=== PATIENT | female | born 1990 | race Caucasian/White ===

== ENCOUNTER 2021-07-25 09:04 | Day surgery (SDC) | payer BC ==
[~2021-07-25] VITALS: Ht 172.7 cm; Wt 60.9 kg
--- NOTE | 2021-07-25 08:12 | NUR ---
07/25/21 0811 Karlene Campbell HISTORY,CHART, MEDICATIONS AND ALLERGIES REVIEWED BEFORE START OF PROCEDURE. PATIENT CONFIRMS NPO STATUS AND AGREES WITH SCHEDULED PROCEDURE. 3-LEAD EKG REVIEWED WITH PHYSICIAN PRIOR TO START OF PROCEDURE. MONITOR INTACT WITH CONTINUOUS PULSE OXIMETRY, 3-LEAD EKG, CAPNOGRAPHY AND INTERMITTENT BP. SUPPLEMENTAL O2 TO BE TITRATED THROUGHOUT PROCEDURE TO MAINTAIN O2 SATURATION ABOVE 90%. PATIENT DETERMINED TO BE ASA APPROPRIATE FOR MODERATE SEDATION PRIOR TO START OF PROCEDURE BY DR. SIMS
--- NOTE | 2021-07-25 12:38 | NUR ---
PT GIVEN PERCOCET 1 TABLET BY MOUTH. TAKING PO FLUID AND FOOD WITHOUT DIFFICULTY. PT REPORTS PAIN ABOUT 7/10 AT THIS TIME. C/O SORE THROAT.
--- NOTE | 2021-07-25 13:00 | NUR ---
Discharge instructions reviewed with patient. Patient verbalizes understanding. Copy given to patient to take home. Patient States Post-Procedure ride home has been arranged. Discharged via wheelchair to private car for ride home.
== END 2021-07-25 13:00 | disposition home or self-care (01) ==
LOC: ORSCMMR 09:04 → ORD 10:30 → ORSCMMR 13:00
PROVIDERS: Obstetrics & Gynecology
PROC: 0UDB8ZX Extraction of Endometrium, Via Natural or Artificial Opening Endoscopic, Diagnostic (ICD-10-PCS; principal; 2021-07-25 10:30)
DX: N85.8 Other specified noninflammatory disorders of uterus (principal); N83.202 Unspecified ovarian cyst, left side; D25.9 Leiomyoma of uterus, unspecified
CPT/HCPCS: 88305; A9270; J1100; J1885; J2250; J2405; J2704; J2710; J3010; J7120